=== PATIENT | female | born 1950 | race Two or more races ===

== ENCOUNTER 2019-06-21 15:07 | Emergency (ER) | payer OTHER ==
[~2019-06-21] VITALS: Ht 157.5 cm; Wt 64.0 kg
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
--- NOTE | 2019-06-21 15:32 | NUR ---
DR MARTELL AT BEDSIDE
[2019-06-21] MEDS ORDERED: CYCLOBENZAPRINE 10 MG TABLET PO ONE (16:00)
[2019-06-21] MEDS ORDERED: KETOROLAC TROMETHAMINE INJ 30 MG/ML VIAL IM ONE (16:00)
[2019-06-21] MEDS ORDERED: KETOROLAC TROMETHAMINE INJ 30 MG/ML VIAL ONE (16:43)
[2019-06-21] MEDS ORDERED: CYCLOBENZAPRINE 10 MG TABLET ONE (16:43)
[2019-06-21] MEDS ORDERED: ACETAMINOPHEN ES 500 MG TABLET PO ONE (17:30)
[2019-06-21] MEDS ORDERED: ACETAMINOPHEN ES 500 MG TABLET ONE (17:35)
--- NOTE | 2019-06-21 17:37 | NUR ---
WEB OPERATIONS LEAD AT BEDSIDE
[2019-06-21 19:26] VITALS: BP 152/91
--- NOTE | 2019-06-21 19:26 | NUR ---
Patient discharged to home in stable condition. Written and verbal after care instructions given. Patient verbalizes understanding of instruction.
== END 2019-06-21 19:26 | disposition home or self-care (01) ==
LOC: ER 15:19
DX: S16.1XXA Strain of muscle, fascia and tendon at neck level, initial encounter (principal); S46.812A Strain of other muscles, fascia and tendons at shoulder and upper arm level, left arm, initial encounter; S29.011A Strain of muscle and tendon of front wall of thorax, initial encounter; I10 Essential (primary) hypertension; E78.00 Pure hypercholesterolemia, unspecified; F32.9 Major depressive disorder, single episode, unspecified; Z90.49 Acquired absence of other specified parts of digestive tract; Z88.0 Allergy status to penicillin; V49.49XA Driver injured in collision with other motor vehicles in traffic accident, initial encounter; Y93.89 Activity, other specified; Y92.413 State road as the place of occurrence of the external cause; Y99.8 Other external cause status
CPT/HCPCS: 71100; 72125; 73030; 96372; 99284; J1885